=== PATIENT | female | born 1985 | race Caucasian/White ===

== ENCOUNTER 2025-05-08 08:07 | Emergency (ER) | payer BC, SELFPAY ==
[2025-05-08 08:08] VITALS: BP 145/88
--- NOTE | 2025-05-08 09:41 | ED.GENMED ---
History of Present Illness
General
Chief Complaint: Breathing Problem
Source: patient
Exam Limitations: none
Time Seen by Provider: 05/08/25 09:31
Nursing documentation reviewed up to this point in time: agreed with
History of Present Illness
History of Present Illness:
Note:
CHIEF COMPLAINT(S)
Shortness of breath, back pain.
HISTORY OF PRESENT ILLNESS
The patient is a 40-year-old female who presented with symptoms of shortness of breath and back pain that began a few days prior, on Thursday or . These symptoms coincided with experiencing job-related stress and anxiety. Over the past
weekend, the patient noted that the pain, characterized as intense, radiated across the entire back, extending from the lower back to the ankle. The patient denied significant relief with usual methods and noted the persistence of these complaints.
PLAN
- Conduct blood tests, including a complete blood count, electrolyte panel, and kidney function tests, to screen for abnormalities.
- Perform an electrocardiogram (EKG) to evaluate heart function.
- Order a D-dimer test to screen for potential blood clots. If elevated, proceed with a computed tomography (CT) scan of the chest. If the test is not elevated and there are no other concerning signs, consider chest radiography (X-ray) instead,
avoiding unnecessary radiation exposure.
- Perform an ultrasound on the affected leg to check for deep vein thrombosis, given the patients described pain and shortness of breath.
- Evaluate cardiac enzymes, including troponin levels, to assess for potential cardiac stress or damage, although the physical examination did not currently suggest cardiac concerns.
DIFFERENTIAL DIAGNOSIS
The Differential Diagnosis includes, in no particular order and is not limited to:
1. Anxiety-related respiratory symptoms
2. Musculoskeletal back pain
3. Deep vein thrombosis
4. Pulmonary embolism
5. Myocardial ischemia or infarction
6. Pneumonia
7. Costochondritis
8. Gastroesophageal reflux disease (GERD)
9. Acute stress reaction
10. Pleuritis
EKG
My independent EKG interpretation is:
- Time of EK:14 AM
- Rhythm: Normal sinus rhythm
- Heart Rate: 73 bpm
- [place]: Normal
- FL Interval: Normal
- QRS Duration: Normal
- QT Interval: Normal
- Abnormalities: No signs of ischemia
- Overall Interpretation: Normal EKG
Disposition:
SUMMARY OF ENCOUNTER
The patient, a 40-year-old female, presented to the emergency department with symptoms of shortness of breath and back pain, which began days ago and were associated with job-related stress and anxiety. After thorough evaluation, including the
normal EKG and no signs of pneumonia, congestive heart failure (CHF), pulmonary embolism (PE), or dysrhythmia, she was deemed stable for discharge. The shortness of breath was managed conservatively in the emergency department.
DISPOSITION
Discharge
ASSESSMENT
The patients symptoms appear related to anxiety and stress, given the negative findings for pneumonia, CHF, PE, and dysrhythmia.
PLAN
- Conduct blood tests, including a complete blood count, electrolyte panel, and kidney function tests.
- Perform a D-dimer test to rule out blood clots.
- Consider chest X-ray if no other concerning signs appear but avoid unnecessary radiation.
- Check for deep vein thrombosis with an ultrasound on the affected leg.
- Evaluate cardiac enzymes, like troponin levels, if needed.
INDEPENDENT REVIEW OF LABS AND INTERPRETATION OF TESTS
My independent interpretation of EKG is normal, showing no signs of ischemia or dysrhythmia.
PATIENT EDUCATION AND COUNSELING
The patient was educated on potential anxiety-related symptoms and advised on managing stress. Return precautions about worsening symptoms were provided.
FOLLOW-UP INSTRUCTIONS
The patient is advised to follow up with primary care for ongoing management of her symptoms.
MEDICATION RECONCILIATION
No medications were administered or prescribed during this encounter.
MEDICAL DECISION MAKING
1. Number and Complexity of Problems Addressed:
Chronic conditions affecting care include anxiety and stress-related symptoms. Differential diagnoses considered were anxiety-related respiratory symptoms, musculoskeletal back pain, deep vein thrombosis, pulmonary embolism, myocardial ischemia or
infarction, pneumonia, costochondritis, gastroesophageal reflux disease (GERD), acute stress reaction, and pleuritis.
2. Data:
Category 1:
- Lab tests considered include complete blood count and electrolyte panel.
Category 2:
- My independent interpretation of the EKG showed no abnormalities.
3. Risk:
The patient was discharged with careful consideration. Work-up was reassuring with no acute life-threatening process. She was stable on reevaluation, provided reliable follow-up, and agreed with discharge instructions.
DIAGNOSIS
1. Anxiety-related respiratory symptoms (F41.1)
2. Musculoskeletal back pain (M54.5)
Past History
Past History
ED Past Medical History: None
ED Past Surgical History: None
Social History
Tobacco: Smoker
Alcohol: None
Drug: None
Personal: Single
Living: with family
Family History
Family History: Negative Early CAD or Sudden
Phy Exam
Physical Exam
Physical Exam:
.
Course
Orders/Labs/Results
Orders:
Orders
05/08/25 08:11
EKG [Electrocardiogram (*1)] Urgent
Reason for Study: Shortness of Breath
EKG- Treatment ONCE
05/08/25 09:57
IV Insert/Care/Rem.- Treatment PRN
Pulse Ox/cont/shift [RESP] Stat
Quantity: 1
05/08/25 09:58
Cardiac Monitoring- Treatment ONCE
05/08/25 10:07
Complete Blood Count/With Diff Urgent
Comprehensive Metabolic Panel Urgent
D-Dimer Urgent
Magnesium Urgent
Troponin I Urgent
05/08/25 11:55
CR Chest - 2 Views Urgent
Comment:
Reason For Exam: short of breath, chest pain
05/08/25 12:55
US Periph Venous LOWER Ext LT Urgent
Comment:
Reason For Exam: left leg pain
Abnormal Lab Results
05/08/25
10:07
RBC 3.78 L 10^6/uL
(4.20-5.40)
Hct 36.3 L %
(37.0-47.0)
MCH 32.8 H pg
(27.0-31.0)
Absolute Monos (auto) 0.7 H 10^3/uL
(0.1-0.6)
Monocytes % 10.0 H %
(1.7-9.3)
BUN 19 H mg/dl
(7-17)
05/08/25 10:07
05/08/25 10:07
Vital Signs
Initial and Last Documented VS:
Initial Vital Signs
Temp Pulse Resp BP Pulse Ox
97.6 F 74 18 145/88 100
05/08/25 08:08 05/08/25 08:08 05/08/25 08:08 05/08/25 08:08 05/08/25 08:08
Last Documented Vital Signs
Temp Pulse Resp BP Pulse Ox
97.6 F 64 20 108/67 96
05/08/25 08:08 05/08/25 14:00 05/08/25 14:00 05/08/25 12:00 05/08/25 14:00
*Pulse Oximetry
SaO2: 100
Oxygen Mode of Delivery: Room air
Patient hypoxic: no
*Critical Care Note
Total Time (30-74mins, 75-104mins- exclusive of procedures): Not Applicable
ED Attending Note
-
Portions of this chart may have been created with voice recognition software.� Occasional wrong word or��sound alike� substitutions may have occurred due to the inherent limitations of voice recognition software.
Discharge Plan
Departure
Patient Disposition: Home (Routine Discharge)
Date of Disposition: 05/08/25
Time of Disposition: 14:08
Patient with high blood pressure during this ER visit?: No
Condition: Good
Discharge Problem:
Shortness of breath, Paresthesia and pain of left extremity
Instructions: Shortness of Breath (Dyspnea) (DC), Chest Pain (DC)
Prescriptions:
No Action
multivitamin [Daily Multiple] 1 EACH tablet
1 ea PO DAILY
Referrals:
UNKNOWN - PT DOES,NOT KNOW [Family Provider]
Activity Restrictions/Additional Instructions:
Follow up with primary care. Return for any concerns.
Interventions
Interventions:
*Risk Screen - Suicide Last Done: 05/08/25 08:10
*General Assessment Last Done: 05/08/25 08:10
*Neglect/Abuse Screening Last Done: 05/08/25 08:10
*ED COVID-19 Vaccine History Last Done: 05/08/25 12:00
*ED Influenza Vaccine History Last Done: 05/08/25 12:00
*Nursing Disposition Last Done: 05/08/25 14:26
ED- Cardiac Assessment Last Done: 05/08/25 12:00
ED- Pulmonary Assessment Last Done: 05/08/25 12:00
Discharge Date and Time
Discharge Date/Time: 05/08/25 14:27
Print Language: SETSWA[place]
[2025-05-08 10:09] VITALS: BP 121/83
[2025-05-08 10:38] LABS: Hematocrit 36.3 % (37.0-47.0); Hemoglobin 12.4 g/dL (12.0-16.0); Mean Corp Hgb Conc. 34.2 g/dL (33.0-37.0); Mean Corpuscular Volume 96.0 fL (81.0-99.0); Nucleated Red Blood Cells % 0 %; Platelet Count 228 10^3/uL (130-400); Red Cell Dist. Width 11.6 % (11.5-14.5)
[2025-05-08 10:52] LABS: D-Dimer 0.29 ug/mlFEU (0.00-0.50)
[2025-05-08 10:54] LABS: ALT (SGPT) 24 U/L (0-35); AST (SGOT) 21 U/L (14-36); Albumin 4.2 g/dl (3.5-5.0); Alkaline Phosphatase 53 U/L (38-126); Blood Urea Nitrogen 19 mg/dl (7-17); Calcium 8.5 mg/dl (8.4-10.2); Carbon Dioxide 23 mmol/L (22-30); Chloride 106 mmol/L (98-107); Glucose 83 mg/dl (70-99); Magnesium 1.9 mg/dl (1.6-2.3); Potassium 4.0 mmol/L (3.5-5.1); Sodium 136 mmol/L (135-145); Total Protein 7.0 g/dl (6.3-8.2); eGFR > 60.00
[2025-05-08 11:00] VITALS: BP 118/72
[2025-05-08 11:05] LABS: Troponin I < 0.012 ng/ml
[2025-05-08 12:00] VITALS: BP 108/67
== END 2025-05-08 14:27 | disposition home or self-care (01) ==
LOC: EMR 08:07
PROVIDERS: EMERGENCY PHYSICIAN Emergency Medicine
DX: R06.02 Shortness of breath (principal); R20.2 Paresthesia of skin; M79.662 Pain in left lower leg; F17.200 Nicotine dependence, unspecified, uncomplicated
CPT/HCPCS: 99284; 71046; 80053; 83735; 84484; 85025; 85379; 93005; 93971